=== PATIENT | male | born 1975 | race Caucasian/White ===

== ENCOUNTER 2022-04-15 16:17 | Emergency (ER) | payer MEDICAID ==
[~2022-04-15] VITALS: Ht 185.4 cm; Wt 115.9 kg
[2022-04-15 16:22] VITALS: BP 162/85
[2022-04-15] MEDS ORDERED: DOXY-354 PO (17:13)
[2022-04-15] MEDS ORDERED: IBUP-2070 PO (17:13)
== END 2022-04-15 17:34 | disposition home or self-care (01) ==
LOC: EMS 16:21
DX: L02.413 Cutaneous abscess of right upper limb (principal)
CPT/HCPCS: 99283

== ENCOUNTER 2022-04-17 16:44 | Emergency (ER) | payer MEDICAID ==
[~2022-04-17] VITALS: Ht 185.4 cm; Wt 115.9 kg
[~2022-04-17 16:44] MED LIST: DOXY-354 PO; IBUP-2070 PO
[2022-04-17 16:58] VITALS: BP 145/93
== END 2022-04-17 19:04 | disposition home or self-care (01) ==
LOC: EMS 16:44
DX: L02.413 Cutaneous abscess of right upper limb (principal)
CPT/HCPCS: 99281; Z7502